=== PATIENT | female | born 1990 | race African-American/Black ===

== ENCOUNTER 2020-03-30 09:28 | Emergency (ER) | payer MEDICAID, SELFPAY ==
--- NOTE | 2020-03-30 09:31 | PC.NURSE ---
pt. denies having photo ID or any form of ID at intake.
[2020-03-30 09:48] VITALS: BP 113/76; PULSE 89; RESP 16; TEMP 37.3; O2SAT 100
--- NOTE | 2020-03-30 10:24 | ED.GENADULT ---
HPI - General Adult General Chief complaint: Upper Respiratory Infection Stated complaint: sore throat Time Seen by Provider: 03/30/20 09:30 Source: patient and old records reviewed Mode of arrival: ambulatory Limitations: no limitations History of Present Illness HPI narrative: Patient is a 29-year-old female who presents with sore throat for the last several days but notes chills and sweats accompanying the sore throat denies any vomiting diarrhea or other URI symptoms or complaints presents in no distress notes moderate aching pain of the throat worse with swallowing Related Data Allergies Allergy/AdvReac Type Severity Reaction Status Date / Time No Known Allergies Allergy Unknown Verified 06/05/19 08:54 Review of Systems Review of Systems: All systems reviewed & are unremarkable except as noted in HPI and below PMFSH Surgical History Surgical History History of section History of tubal ligation Social History Social History Smoking status: Never smoker Exam Narrative: Exam Narrative: GENERAL: Well-appearing, well-nourished, and in no acute distress. HEAD: Normocephalic, atraumatic. EYES: PERRLA and EOMI. ENT: Nares clear, no rhinorrhea or epistaxis. Mucous membranes moist. Oropharynx with tonsillar hypertrophy and without exudate or other lesions. Uvula midline no trismus or drooling bilateral TMs pearly morris nonbulging NECK: Supple. No adenopathy or masses. CHEST: Clear to auscultation. No respiratory distress. No wheezes rales or rhonchi HEART: Regular rate and rhythm. No murmur heard. EXTREMITIES: Normal range of motion. No edema. SKIN: Warm, dry, no rash. NEURO: No focal deficits. Alert and oriented x3. PSYCH: Normal mood and affect. Course Course Emergency Course: Patient in the room in no distress will be swabbed for strep and Covid patient was instructed that she needs to contact the on-call primary care doctor today to let them know that she was in the ER she was tested for Covid and that they will be necessary for her to get her results patient understands this and agrees with this plan she has also been given an ENT follow-up patient was given prednisone in the ER patient agrees to self quarantine until she has received your COVID-19 results and was also provided with reasons to return Vital Signs Vital signs: Vital Signs Temperature 99.1 F 03/30/20 09:48 Pulse Rate 89 03/30/20 09:48 Respiratory Rate 16 03/30/20 09:48 Blood Pressure 113/76 03/30/20 09:48 Pulse Oximetry 100 03/30/20 09:48 Temperature 99.1 F 03/30/20 09:48 Pulse Rate 89 03/30/20 09:48 Respiratory Rate 16 03/30/20 09:48 Blood Pressure 113/76 03/30/20 09:48 Pulse Oximetry 100 03/30/20 09:48 Medical Decision Making MDM Narrative Medical decision making narrative: Patient with upper respiratory symptoms will be swabbed for Covid and strep negative strep in the ER Covid testing pending patient has been advised to follow with on-call primary care to get these results that she does not have a primary care currently also given ENT patient felt appropriate for outpatient reevaluation. There are no focal signs of space occupying lesions that are compromising to the ariway. The floor of the mouth is soft with no signs of Ludwigs Angina. Patient is without trismus or drooling and able to swallow secreations. Vital Signs Vital Signs: Vital Signs Temperature 99.1 F 03/30/20 09:48 Pulse Rate 89 03/30/20 09:48 Respiratory Rate 16 03/30/20 09:48 Blood Pressure 113/76 03/30/20 09:48 Pulse Oximetry 100 03/30/20 09:48 Temperature 99.1 F 03/30/20 09:48 Pulse Rate 89 03/30/20 09:48 Respiratory Rate 16 03/30/20 09:48 Blood Pressure 113/76 03/30/20 09:48 Pulse Oximetry 100 03/30/20 09:48 Lab Data Labs: Strep Screen Presumptiv
[2020-03-30 10:40] VITALS: PULSE 70; RESP 12
[2020-03-30] MEDS: predniSONE 20 MG TABLET 60 MG PO (10:40)
[2020-03-30 19:01] LABS: SARS-CoV-2 RNA PCR Negative
== END 2020-03-30 10:41 | disposition home or self-care (01) ==
PROVIDERS: Emergency Medicine Emergency Medical Services; Emergency Provider Emergency Medicine
DX: J06.9 Acute upper respiratory infection, unspecified (principal); Z20.828 Contact with and (suspected) exposure to other viral communicable diseases
CPT/HCPCS: 87081; 87635; 87880; 99283; C9803; J7512; U0003

== ENCOUNTER 2020-04-01 13:03 | Emergency (ER) | payer OTHER, SELFPAY ==
[2020-04-01 13:06] VITALS: BP 109/63; PULSE 69; RESP 18; TEMP 36.2; O2SAT 100
--- NOTE | 2020-04-01 13:19 | ED.GENADULT ---
HPI - General Adult General Chief complaint: Unspecified Stated complaint: Sore Throat Time Seen by Provider: 04/01/20 13:18 Source: patient Mode of arrival: ambulatory Limitations: no limitations History of Present Illness HPI narrative: Patient is a 29-year-old female complaining of a sore throat for started 1 week ago. Patient was seen here, had a negative strep screen, was prescribed with antibiotics 1 week ago. Patient denies dysphagia, neck swelling, fever or chills. Related Data Allergies Allergy/AdvReac Type Severity Reaction Status Date / Time No Known Allergies Allergy Unknown Verified 04/01/20 13:10 Review of Systems Review of Systems: All systems reviewed & are unremarkable except as noted in HPI and below Constitutional: Constitutional: Denies body ache(s), Denies chills, Denies excessive sweating, Denies fatigue, Denies fever(s), Denies headache(s), Denies lethargy, Denies malaise, Denies weakness and Denies weight loss Eyes: Eyes: Denies blurry vision, Denies change in vision and Denies loss of vision ENT: Denies dizziness, Denies ear discharge, Denies headache(s), Denies lip swelling, Denies epistaxis, Denies nasal congestion, Denies neck pain and Denies tongue swelling Cardiovascular: Cardiovascular: Denies chest pain, Denies chest pain at rest, Denies chest pain with activity, Denies diaphoresis, Denies rapid heart rate, Denies edema, Denies irregular heart rhythm, Denies lightheadedness, Denies palpitations, Denies dyspnea and Denies dyspnea on exertion Respiratory: Respiratory: Denies chest congestion, Denies cough, Denies hemoptysis, Denies dyspnea and Denies dyspnea on exertion Gastrointestinal: Gastrointestinal: Denies abdominal pain, Denies melena, Denies hematochezia, Denies diarrhea, Denies nausea, Denies vomiting and Denies hematemesis Musculoskeletal: Musculoskeletal: Denies abnormal gait, Denies deformity, Denies joint swelling, Denies limited range of motion, Denies neck pain and Denies numbness Neurologic: Denies Abnormal speech present, Denies abnormal gait, Denies confusion, Denies dizziness, Denies headache(s), Denies focal weakness, Denies loss of vision, Denies numbness, Denies Other visual disturbances, Denies Sensory deficit (Neuro) and Denies weakness Psychiatric: Psychiatric: Denies confusion, Denies depression, Denies auditory hallucinations, Denies homicidal ideation and Denies suicidal ideation Endocrine: Endocrine: Denies cold intolerance, Denies excessive sweating, Denies fatigue, Denies heat intolerance and Denies palpitations Hematologic/Lymphatic: Hematologic/Lymphatic: Denies easy bleeding and Denies easy bruising Allergic/Immunologic: Allergic/Immunologic: Denies lip swelling, Denies throat swelling and Denies tongue swelling [facility] Surgical History Surgical History History of section History of tubal ligation Social History Social History Smoking status: Never smoker Exam Const: General: cooperative, healthy appearing, comfortable, no acute distress, well developed, alert and awake; No confusion Orientation/consciousness: oriented to person, oriented to place, oriented to time, patient oriented x3 and No confusion Limitations: no limitations HENMT: Head: normal to inspection, normocephalic and atraumatic Ears: hearing grossly normal bilaterally, TM normal on the right and TM normal on the left General nose exam: Normal external nose present, Normal nares present and No nasal discharge present Face and sinus: normal facial exam Mouth: Yes Normal oral and palatal mucosa present, Yes lip normal, Yes tongue normal, Yes moist mucous membranes, No dry mucous membranes, No audible dysphonia, No drooling and No muffled voice Other: Erythematous bilateral tonsillar area, uvula slightly erythematous no significant swelling seen. Negative for exudates. Eyes:
[2020-04-01] MEDS: methylPREDNISolone SOD SUCC 125 MG VIAL 80 MG IM (14:22)
[2020-04-01 14:50] VITALS: BP 142/88; PULSE 90; RESP 17; O2SAT 98
== END 2020-04-01 14:55 | disposition home or self-care (01) ==
PROVIDERS: Emergency Provider Emergency Medicine
DX: J02.0 Streptococcal pharyngitis (principal)
CPT/HCPCS: 87880; 96372; 99284; J0558; J2930

== ENCOUNTER 2021-11-30 14:31 | Emergency (ER) | payer OTHER, SELFPAY ==
--- NOTE | 2021-11-30 14:36 | ED.FEMALEGU ---
HPI - Female Genitourinary General Chief complaint: Urogenital-Female Stated complaint: vaginal irritation Time Seen by Provider: 11/30/21 14:36 Source: patient and RN notes reviewed History of Present Illness HPI Narrative: Patient is a 31-year-old female who presents the urgent care with complaints of vaginal irritation and white vaginal discharge. Patient states that she does not practice safe sex with the use of condoms. Patient states her main concern is STDs. Denies of any known exposure to an STD. No other acute complaints. No acute distress noted. Patient aware of the plan of care. Some parts of this dictation were generated by voice recognition software and may contain typographical and/or grammatical inaccuracies. Related Data Allergies Allergy/AdvReac Type Severity Reaction Status Date / Time No Known Allergies Allergy Unknown Verified 04/01/20 13:10 Review of Systems Review of Systems: CONSTITUTIONAL: Denies fever, chills, or sweats. EYES: Denies visual changes, redness, or discharge. ENT: Denies rhinorrhea, congestion, sore throat, or otalgia. CARDIOVASCULAR: Denies chest pain, palpitations, or edema. RESPIRATORY: Denies cough or dyspnea. GASTROINTESTINAL: Denies abdominal pain, nausea, vomiting, or diarrhea. GENITOURINARY: Reports of vaginal patient to follow-up in 2-3 days with primary care provider., White and internal vaginal irritation. SKIN: Denies rash or itching. MUSCULOSKELETAL: Denies back pain, joint pain, or myalgia. NEUROLOGIC: Denies headache, numbness, or weakness. All other systems reviewed are negative, except as documented in HPI. PMFSH Surgical History Surgical History History of section History of tubal ligation Social History Social History Smoking status: Never smoker Comments At the time of my signature, I reviewed and agree with the nursing past medical, surgical, social, and family history. There is no relevant family history pertinent to the patient complaint. Exam Narrative: GENERAL: This is a well-nourished, well-developed patient, in no apparent distress. HEAD: normocephalic, atraumatic. EYES: PERRL. Sclera clear/white. Vision is grossly intact. EARS: External ears normal NOSE: External nose normal with no obvious nasal discharge, nares without redness, no rhinorrhea. THROAT: Mucous membranes moist NECK: Neck supple : deferred vaginal exam SKIN: warm, intact with no suspicious lesions or rash, good texture and turgor. NEURO: awake, alert, and oriented to person, place and time. There were no obvious focal neurologic abnormalities. EXTREMITIES: No clubbing, cyanosis, or edema. Course Course Level of Care: Express Care Visit Vital Signs Vital signs: Vital Signs Temperature 98.8 F 11/30/21 14:44 Pulse Rate 80 11/30/21 14:44 Respiratory Rate 16 11/30/21 14:44 Blood Pressure 115/77 11/30/21 14:44 Pulse Oximetry 100 11/30/21 14:44 Temperature 98.8 F 11/30/21 14:44 Pulse Rate 80 11/30/21 14:44 Respiratory Rate 16 11/30/21 14:44 Blood Pressure 115/77 11/30/21 14:44 Pulse Oximetry 100 11/30/21 14:44 Reviewed MDM - Female Genitourinary MDM Narrative Medical decision making narrative: Patient is aware that STD testing does take approximately 1 week or longer to receive all test. We only test for trichomonas, gonorrhea, and chlamydia. If you wish to be checked for the full gamut of STDs, would suggest going to a women's Health Center or a health department for further testing. Our facility is not a routine STD testing site. Would advise practicing safe sex. Make sure you and your partner are both being treated and abstaining from sexual activity for 14 days after your treatment has been completed. If you do not follow the guidelines on abstinence for the full 2 weeks after antibiotic regimen is complete
[2021-11-30 14:44] VITALS: BP 115/77; PULSE 80; RESP 16; TEMP 37.1; O2SAT 100
[2021-11-30] MEDS: cefTRIAXone 500 MG, LIDOCAINE HCL 1% LOCAL INJ 1 ML IM (15:02)
== END 2021-11-30 15:25 | disposition home or self-care (01) ==
PROVIDERS: Emergency Provider Nurse Practitioner Family
DX: Z72.51 High risk heterosexual behavior (principal)
CPT/HCPCS: 87491; 87591; 87661; 99213; G0463; J0696

== ENCOUNTER 2022-01-27 04:09 | Emergency (ER) | payer OTHER, SELFPAY ==
[2022-01-27 04:16] VITALS: BP 126/63; PULSE 115; RESP 18; TEMP 37.6; O2SAT 99
--- NOTE | 2022-01-27 04:34 | ED.GENADULT ---
HPI - General Adult General Chief complaint: Upper Respiratory Infection Stated complaint: sore throat Time Seen by Provider: 01/27/22 04:24 Source: RN notes reviewed History of Present Illness HPI narrative: Patient presents emergency department from home for sore throat. Patient states symptoms began yesterday. States that her throat is painful and worse when she tries to swallow she is able to swallow she denies having fever chills ear pain rhinorrhea cough shortness of breath nausea vomiting or any other symptoms. States she took TheraFlu for symptoms last night Related Data Allergies Allergy/AdvReac Type Severity Reaction Status Date / Time No Known Allergies Allergy Unknown Verified 01/27/22 04:28 Review of Systems Review of Systems: Gen.: Denies fevers or chills Eyes: Denies eye pain or visual change ENT: D see HPI Respiratory: Denies shortness of breath or cough CV: Denies chest pain or palpitations GI: Denies abdominal pain nausea, emesis Musculoskeletal: Denies back pain or muscle pain Neuro: Denies numbness, tingling, weakness or focal weakness Skin: Denies rash Except as documented, all other systems reviewed and negative [facility] Past Medical History Medical History (Updated 01/27/22 @ 07:17 by Johnnie Sloan DO) Patient denies significant medical history Surgical History Surgical History History of section History of tubal ligation Social History Social History Smoking status: Never smoker Exam Narrative: APPEARANCE: No acute distress, nontoxic, resting in bed EYES: EOMI HEENT: Normocephalic, atraumatic, TMs clear bilaterally nares patent oral mucosa moist erythema the posterior pharynx and bilateral tonsils with white exudate over the bilateral tonsils uvula midline tonsils 3+ tolerating own secretions voice normal RESPIRATORY: No respiratory distress Clear to auscultation bilaterally with no rhonchi wheezing or rales. CARDIOVASCULAR: Regular rate and rhythm without murmurs rubs or gallops. ABDOMINAL: Soft, nontender, nondistended, no rebound or guarding MUSCULOSKELETAl: Moves all extremities. No clubbing, cyanosis or edema. NEURO: Awake and alert. Following commands, speech normal, no focal deficits SKIN:: Warm, dry. No rashes lesions or abrasions PSYCHIATRIC: Normal affect/mood, Course Course Emergency Course: Recurrent rapid strep screens are on backorder. Patient with erythema the posterior pharynx and exudate bilaterally consistent with strep we will treat with antibiotics no signs of abscess at this time as uvula is midline there is no trismus no protrusion voice normal tolerating own secretions Discussed with patient results of workup and diagnosis. Discussed need for follow-up with primary care, proper use of medication, and reasons to return to the emergency department. Patient understands and agrees to current treatment plan Vital Signs Vital signs: Vital Signs Temperature 99.6 F 01/27/22 04:16 Pulse Rate 115 H 01/27/22 04:16 Respiratory Rate 18 01/27/22 04:16 Blood Pressure 126/63 01/27/22 04:16 Pulse Oximetry 99 01/27/22 04:16 Oxygen Delivery Room Air 01/27/22 04:16 Temperature 99.6 F 01/27/22 04:16 Pulse Rate 115 H 01/27/22 04:16 Respiratory Rate 18 01/27/22 04:16 Blood Pressure 126/63 01/27/22 04:16 Pulse Oximetry 99 01/27/22 04:16 Oxygen Delivery Room Air 01/27/22 04:16 Medical Decision Making Vital Signs Vital Signs: Vital Signs Temperature 99.6 F 01/27/22 04:16 Pulse Rate 115 H 01/27/22 04:16 Respiratory Rate 18 01/27/22 04:16 Blood Pressure 126/63 01/27/22 04:16 Pulse Oximetry 99 01/27/22 04:16 Oxygen Delivery Room Air 01/27/22 04:16 Temperature 99.6 F 01/27/22 04:16 Pulse Rate 115 H 01/27/22 04:16 Respiratory Rate 18 01/27/22 04:16 Blood Pressure 126/63 08/1
[2022-01-27] MEDS: IBUPROFEN 600 MG TABLET PO (04:40)
--- NOTE | 2022-01-27 04:40 | PC.NURSE ---
at 0440 600mg IBUPROFEN WAS GIVEN TO THE PT. PAIN 03/20
--- NOTE | 2022-01-27 04:44 | PC.NURSE ---
2 [place] [facility]REP SPECIMENS WERE SENT TO LAB PER THE NEW PROTOCOL
--- NOTE | 2022-01-27 05:38 | PC.NURSE ---
PT IS RESTING IN DARKENED ROOM WITH EYES CLOSED. FACE RELAXED.
[2022-01-27] MEDS: AMOXICILLIN 500 MG CAPSULE PO (07:57)
== END 2022-01-27 08:00 | disposition home or self-care (01) ==
PROVIDERS: Emergency Provider Emergency Medicine
DX: J02.9 Acute pharyngitis, unspecified (principal)
CPT/HCPCS: 87081; 87147; 99283; A9270

== ENCOUNTER 2022-02-03 09:42 | Emergency (ER) | payer OTHER, SELFPAY ==
--- NOTE | ~2022-02-03 | XR_ITS ---
XR ankle RT min 3V 02/03/2022 10:09 INDICATION: Right ankle pain PROCEDURE: 4 views right ankle COMPARISON: No prior studies for comparison. FINDINGS: Fracture, dislocation or subluxation is not identified. Ankle mortise intact. The soft tiss ues appear within normal limits. No foreign bodies are identified. IMPRESSION: 1: NO ACUTE BONE OR JOINT ABNORMALITY IDENTIFIED. Reviewed, dictated and finalized at location A.
[2022-02-03 09:50] VITALS: BP 119/67; PULSE 62; RESP 16; TEMP 36.5; O2SAT 100
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
[2022-02-03] MEDS: ACETAMINOPHEN 500 MG TABLET 1000 MG PO (10:42)
== END 2022-02-03 10:45 | disposition home or self-care (01) ==
PROVIDERS: Emergency Provider Emergency Medicine
DX: S86.001A Unspecified injury of right Achilles tendon, initial encounter (principal); W18.39XA Other fall on same level, initial encounter; X50.9XXA Other and unspecified overexertion or strenuous movements or postures, initial encounter
CPT/HCPCS: 73610; 99283; A9270

== ENCOUNTER 2022-03-24 16:47 | Emergency (ER) | payer OTHER, SELFPAY ==
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
[2022-03-24 17:00] VITALS: BP 132/94; PULSE 70; RESP 20; TEMP 36.8; O2SAT 100
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
[2022-03-24] MEDS: KETOROLAC 30 MG/ML VIAL (*BKC) IM (17:37)
[2022-03-24] MEDS: TETANUS,DIPHTHERIA,AC PERTUSSIS ADULT (0.5 ML) BOOSTRIX IM (17:38)
== END 2022-03-24 18:50 | disposition home or self-care (01) ==
PROVIDERS: Emergency Provider Emergency Medicine
DX: S06.0X0A Concussion without loss of consciousness, initial encounter (principal); Z23 Encounter for immunization; Y00.XXXA Assault by blunt object, initial encounter
CPT/HCPCS: 70450; 90471; 90715; 96372; 99284; J1885

== ENCOUNTER 2023-12-27 13:17 | Emergency (ER) | payer SELFPAY ==
[2023-12-27] VITALS (7 sets, daily range): BP systolic 103–129; BP diastolic 54–95; PULSE 78–115; RESP 14–20; TEMP 36.4–37.2; O2SAT 97–100
--- NOTE | ~2023-12-27 | CT_ITS ---
EXAMINATION: CT soft tissue neck w con DATE: 12/27/2023 16:02 INDICATION: Recent tonsillitis TECHNIQUE: Computed tomography (CT) of the neck was performed with 75 mL Omnipaque-350 intravenous co ntrast. Automated exposure control and iterative reconstruction technique were employed. The dose-seth gth product was 488.56 mGy-cm. COMPARISON: None FINDINGS: There is enlargement of the bilateral lingual and palatine tonsils consistent with provided history o f tonsillitis. There is a greater degree of mass effect upon the oropharynx from the right lingual an d palatine tonsils resulting from to the underlying more lateral peritonsillar abscess which extends 3.7 cm craniocaudally and measures 2.3 x 0.7 cm maximal orthogonal dimensions. Retropharyngeal soft t issues are unremarkable with no abscess. The epiglottis and aryepiglottic folds are normal. Orbits are normal. Paranasal sinuses, mastoid air cells and middle ear cavities are clear. Relative s ymmetric mildly enlarged likely reactive bilateral cervical lymphadenopathy most prominent along the bilateral mid to upper jugular chains. Thyroid gland is normal. The bilateral parotid and submandibul ar glands are normal and symmetric. The cervical vasculature is normal. Visualized apices of lungs ar e clear. IMPRESSION: 1. Diffuse bilateral tonsillitis with 3.7 x 2.3 x 0.7 cm right peritonsillar abscess. 2. Relatively symmetric likely reactive bilateral cervical lymphadenopathy. Reviewed, dictated and finalized at location A. IMPRESSION: 1. Diffuse bilateral tonsillitis with 3.7 x 2.3 x 0.7 cm right peritonsillar ab scess. 2. Relatively symmetric likely reactive bilateral cervical lymphadenopathy.
[2023-12-27 13:35] LABS: Basophils Absolute Auto 0.1 K/mm3 (0.0-0.1); Basophils Percent Auto 0.3 % (0.2-1.2); Eosinophils Absolute Auto 0.1 K/mm3 (0-0.3); Eosinophils Percent Auto 0.3 % (0-4.4); Hematocrit 38.5 % (37.0-47.0); Hemoglobin 12.2 g/dL (12.0-15.0); Immature Granulocyte Absolute 0.06 K/mm3 (0.00-0.031); Immature Granulocyte Percent A 0.4 % (0-0.5); Lymphocytes Absolute Auto 2.12 K/mm3 (0.9-3.2); Lymphocytes Percent Auto 13.4 % (18.3-44.2); Mean Corpuscular HGB Conc 31.7 g/dl (32-36); Mean Corpuscular Hemoglobin 24.6 pg (26-34); Mean Corpuscular Volume 77.8 fl (80-100); Mean Platelet Volume 10.9 fl (7.4-10.4); Monocytes Absolute Auto 1.3 K/mm3 (0.1-0.6); Monocytes Percent Auto 8.3 % (2.6-8.5); Neutrophils Absolute Auto 12.2 K/mm3 (1.3-6.7); Neutrophils Percent Auto 77.3 % (45.5-73.1); Platelet Count Result 267 k/mm3 (150-375); Red Blood Count 4.95 M/mm3 (4.2-5.4); Red Cell Distribution Width 15.1 % (11.5-14.5); White Blood Count 15.8 K/mm3 (4.5-10.0)
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
[2023-12-27 13:50] LABS: Alanine Aminotransferase 18 U/L (6-35); Albumin Level 4.5 g/dL (3.5-5.1); Alkaline Phosphatase 78 U/L (38-126); Anion Gap 13 mmol/L (4-12); Aspartate Amino Transferase 22 U/L (14-36); Bilirubin,Total 0.6 mg/dL (0.2-1.3); Blood Urea Nitrogen 8 mg/dL (7-17); Calcium 8.9 mg/dL (8.4-10.2); Carbon Dioxide 24 mmol/L (22-30); Chloride 99 mmol/L (98-107); Estimated Glomerular Filt Rate > 60; Glucose 99 mg/dL (65-110); Sodium 136 mmol/L (137-145)
[2023-12-27 13:58] LABS: Strep Group A RT-PCR NOT DETECTED (Negative)
[2023-12-27 14:11] LABS: Monoscreen Negative (Negative); Negative Monotest Control Negative (Negative); Positive Monotest Control Positive (Positive)
[2023-12-27] MEDS: MORPHINE SULFATE (*CRX) 4 MG/ML INJ IV PUSH ×2 (16:09→18:00)
[2023-12-27 16:10] LABS: Influenza A QL RT-PCR Negative (Negative); Influenza B QL RT-PCR Negative (Negative); RSV RNA, RT-PCR Negative (Negative); SARS-CoV-2 RNA PCR Negative (Negative)
[2023-12-27] MEDS: dexAMETHasone SOD PHOS INJ 10 MG/ML 1 ML VIAL IV PUSH (16:38)
[2023-12-27] MEDS: DEXTROSE 5%/0.45% SOD CHL 1,000 ML 500 ML IV CONT (17:49)
[2023-12-27] MEDS: AMPICILLIN SULB 3 GM/NS 100 ML 3 GM/100 ML VIAL IVPB (18:02)
[2023-12-27] MEDS: HYDROmorphone HCL INJ (*CRX) 1 MG/ML SYR 0.5 MG IV PUSH (19:49)
== END 2023-12-27 22:46 | disposition short-term general hospital (02) ==
PROVIDERS: Nurse Practitioner Family; Emergency Provider Student in an Organized Health Care Education/Training Program
DX: J36 Peritonsillar abscess (principal); D72.829 Elevated white blood cell count, unspecified; R59.1 Generalized enlarged lymph nodes; Z20.822 Contact with and (suspected) exposure to COVID-19
CPT/HCPCS: 36415; 70491; 80053; 85025; 86308; 87637; 87651; 96361; 96365; 96375; 96376; 99285; J0295; J1100; J1170; J2270; Q9967